=== PATIENT | male | born 1950 | race Caucasian/White ===

== ENCOUNTER → 2017-01-03 | Outpatient (CLI) | payer BC | LOC: BHSO 15:54 | DX: F33.42 Major depressive disorder, recurrent, in full remission (principal) ==

== ENCOUNTER → 2017-07-04 | Outpatient (CLI) | payer BC | LOC: BHSO 14:57 | DX: F33.1 Major depressive disorder, recurrent, moderate (principal); F41.1 Generalized anxiety disorder ==

== ENCOUNTER → 2019-02-22 | Outpatient (CLI) | payer BC | LOC: COL.VAS 14:23 | DX: M79.89 Other specified soft tissue disorders (principal) ==

== ENCOUNTER → 2019-08-26 | Outpatient (CLI) | payer MEDICARE, OTHER | LOC: COL.RAD 08:22 | DX: F17.201 Nicotine dependence, unspecified, in remission (principal) ==